=== PATIENT | male | born 1950 | race Caucasian/White ===

== ENCOUNTER → 2024-07-02 12:43 | Outpatient (REF) | payer MEDICARE, SELFPAY | LOC: HWRAD 12:43 | PROVIDERS: ATTENDING PHYSICIAN Family Medicine | DX: N28.1 Cyst of kidney, acquired (principal) | CPT/HCPCS: 76775 ==

== ENCOUNTER → 2025-07-03 13:12 | Outpatient (REF) | payer MEDICARE, SELFPAY | LOC: PAVMRI 13:12 | PROVIDERS: ATTENDING PHYSICIAN Internal Medicine | DX: I87.2 Venous insufficiency (chronic) (peripheral) (principal); I83.90 Asymptomatic varicose veins of unspecified lower extremity | CPT/HCPCS: 72198 ==